=== PATIENT | female | born 1960 | race Caucasian/White ===

== ENCOUNTER → 2016-04-07 | Outpatient (CLI) | payer BC ==
[~2016-04-07] MED LIST: CLON0.5T3 PO; DULA1INJ SQ; ESCI10TA17 PO; GLIM4TAB2 PO; PRLSR20 PO
--- NOTE | 2016-04-08 13:34 | MAMMOGRAPHY REPORT ---
BILATERAL DIGITAL SCREENING MAMMOGRAM TOMOSYNTHESIS WITH CAD: 04/07/2016 CLINICAL HISTORY: Routine screening examination. TECHNIQUE: Breast tomosynthesis in addition to standard 2D mammography was performed. Current study was also evaluated with a Computer Aided Detection (CAD) system. COMPARISON: Comparison is made to exams dated: 02/27/2010 mammogram - [facility] a nd 03/02/2007. BREAST COMPOSITION: The tissue of both breasts is almost entirely fatty. FINDINGS: There is evidence of prior reduction mammoplasty. There is stable nodularity in the 12:0 0 right breast. Benign rim calcifications scattered bilaterally. No new suspicious mass, application systems architect ural distortion or cluster of microcalcifications is seen. IMPRESSION: ACR BI-RADS CATEGORY 1: NEGATIVE There is no mammographic evidence of malignancy. A 1 year screening mammogram is recommended. The p atient will receive written notification of the results. Approximately 10% of breast cancers are not detected with mammography. A negative mammographic repor t should not delay biopsy if a clinically suggestive mass is present. Mary Lou eYager M.D. ay/:04/07/2016 21:37:02 Flute Polisher: Loretta OLMSTEAD(Douglas)(Jo), [facility] letter sent: Normal 1/2 BI-RADS Code: ACR BI-RADS Category 1: Negative
== END | disposition home or self-care (01) ==
LOC: C.MAMM 15:35
PROVIDERS: ATTEND Physician Assistant
DX: Z12.31 Encounter for screening mammogram for malignant neoplasm of breast (principal)

== ENCOUNTER → 2017-03-03 | Outpatient (CLI) | payer BC ==
[~2017-03-03] MED LIST changes: +DOCU-94 PO; +ONDA8TAB62 SL; +PROC1TAB5 PO; +PROM25SU28 PR
[2017-03-03 14:53] VITALS: BP 98/65; PULSE 68; TEMP 36.3; O2SAT 99
--- NOTE | 2017-03-03 16:11 | Radiation Oncology Follow-Up ---
Radiation Oncology Follow-Up Date of Visit Mar 03, 2017. 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 Radiation was completed 01/25/2017. She received 5040 cGy. Last Edited By: Lisa Alarcon on Feb 01, 2017 17:31 History of Present Illness Ms. Torres over the past several months increasing difficulty swallowing. She had issues with eating rice and when she tried to take water to help the rice go down she was unable to pass the food. She has lost approximately 8 pounds during this episode but presently is able to swallow most things without difficulty. The patient underwent an endoscopy by Dr. Cole on 11/02/2016. This revealed a large, fungating and ulcerating mass with bleeding found in the middle third of the esophagus and in the lower third of the esophagus. The tumor extended from 30-36 cm from the incisors. The mass was partially obstructing and partially circumferential (involving one half of the luminal circumference). Biopsies were taken with cold forceps for histology verification. There was no extension into the stomach and no involvement of the duodenum. Later that evening patient underwent CT scans of the chest abdomen and pelvis. This revealed wall thickening of the distal esophagus with enlarged lymph node in the gastrohepatic ligament ensuring 1.5 cm.. The biopsy of the distal esophagus revealed an invasive adenocarcinoma accession #: [id number]. The patient underwent a staging upper endoscopy by Dr. Richardson on 11/06/2016. This confirmed a hypoechoic mass found in the lower third of the esophagus. The mass was encountered at 30 cm level from the incisors and extending to 37 cm level. The lesion was partially circumferential involving 50% of the lumen. The sonographic borders were poorly defined. The mass measured up to 1.2 cm in thickness. There was sonographic evidence suggesting invasion into the muscularis propria. An intact interface was seen between the mass and the adjacent structures suggesting a lack of invasion. For malignant appearing lymph nodes were visualized in the peritumoral region and one in the subcarinal mediastinum (level VII). The largest measured 1.3 cm in maximal cross sectional diameter. One malignant lymph node was visualized in the gastrohepatic ligament rapid disease level XVIII) it measured 1.7 x 1.5 cm and a fine-needle aspiration for cytology was taken. There were no signs of abnormalities in the left lobe of the liver and no involvement of the celiac trunk. The tumor was into but not through the fourth layer (muscularis propria ) with small peritumoral lymph nodes and subcarinal lymph nodes. The abdominal lymph node appears to be at the gastrohepatic ligament and not following the course of either the splenic artery of the left gastric artery and was not involving the celiac trunk. The lesion was staged by ultrasound as a uT3 uN2 Mx. 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 Accession #: [id number]. Patient was subsequently seen by Dr. Damaso Pedroza for evaluation and discussion of treatment options. He recommended a PET/CT scan to complete the staging workup. He discussed combination chemoradiation. He discussed weekly Paclitaxel and Carboplatin along with daily radiation and a preoperative intent. He arranged for the patient to be seen by Dr. Sevilla in [place] on December 02. The PET/CT scan was performed on 11/17/2016. This revealed bilateral hilar uptake right greater than left, subcarinal, AP window, right peritracheal markedly hypermetabolic adenopathy. The most intense nodular focus was in the right central hilar with an SUV max of 7.58. There was intense FDG activity and an SUV max of 20.61 in the significantly thickened distal esophagus. This measured 2.7 x 3.0 x 5 cm in the distal esophagus. There was mildly hypermetabolic gastrohepatic ligament lymph node with an SUV max of 3.6 to measuring 1.7 x 1.6 cm. There were multiple periportal lymph nodes demonstrating hypermetabolic change with a insurance service representative node measuring 1.5 x 2.6 cm and an FDG with SUV max of 4.49. There were no abnormalities in the pelvis. There were multiple foci of nodular uptake in the skin and subcutaneous regions of the breast tissue bilaterally without underlying nodular foci. Most intense is seen in the left breast with an SUV max of 4.[address] scan component that there was thoracic adenopathy as noted above and distal esophageal thickening/mass. Mild interstitial lung disease was suggested with posterior atelectasis. Diffuse fatty metamorphosis of the liver and small bilateral cortical renal cysts. We were asked to see the patient for consideration of preoperative chemoradiation. She completed combined neoadjuvant radiation and chemotherapy 01/25/2017. She received 5040 cGy Interim History Over the past month she has had difficulty with nutrition. She has excess phlegm that occurs in the throat. She will try to swallow food it only goes down so far and then comes back up. She was hospitalized for 2 days approximately 2 weeks ago [place]. She was given in the emergency room [place] yesterday. She was hydrated. She was given potassium. She has tried different products but has difficulty with ensure and boost because of the thickness of the fluid and increased phlegm after using these products. She denies pain. There is no pain with swallowing. There has been discussion of possible feeding tube. This was felt to be a concern due to the upcoming planned surgery. This may cause difficulty with the pull through of the stomach. Allergies Coded Allergies: No Known Allergies (Unverified , 11/18/16) Home Medications Scheduled Dulaglutide (Trulicity), 0.75 MG SQ WK Escitalopram (Lexapro), 10 MG PO DAILY Glimepiride (Glimepiride), 2 TAB PO DAILY Omeprazole (Prilosec), 20 MG PO DAILY Scheduled PRN Clonazepam (Klonopin), 0.5 MG PO DAILY PRN for Anxiety Ondansetron Odt (Zofran Odt), 8 MG SL Q6H PRN for Nausea Prochlorperazine Maleate (Compazine), 1 TAB PO Q6 PRN for Nausea Promethazine Hcl (Phenergan Suppository), 25 MG WI Q6H PRN for Nausea Review of Systems Gastrointestinal: Symptoms: Nausea GI Comments: Uses antiemetics without relief;2-4 emesis/day; Oral: Symptoms: Saliva amt. Increased, Thick/Viscid/Mucid Saliva Other Oral Symptoms: Not using aloe vera juice, manuka honey, or MBXC Respiratory: Symptoms: WNL Urinary: Symptoms: WNL Skin: Symptoms: No Problems Physical Exam Vital Signs Date Time Temp Pulse Resp B/P (MAP) Pulse Ox O2 Delivery O2 Flow Rate FiO2 03/03/17 14:53 36.3 68 12 98/65 99 Fatigue: Moderate General Appearance: no apparent distress Eyes: normal inspection, EOMI ENT: normal ENT inspection, hearing grossly normal Neck: no adenopathy, thyroid normal Respiratory/Chest: lungs clear, no respiratory distress, no accessory muscle use Cardiovascular: regular rate, rhythm, no gallop, no murmur Abdomen: soft, + tenderness Extremities: no pedal edema Neurologic/Psychiatric: no motor/sensory deficits, alert, normal mood/affect Skin: warm/dry Pain Management Patient Reports Pain: Yes Pain Location: Discomfort betw'n breasts Patient Preferred Pain Scale: 0 - 10 Initial Pain Intensity: 2.5 Pain Management Plan This occurs after she has tried to take in food. This can result in vomiting. We discussed intake of liquid nutrition and using MBXC to relieve discomfort at the distal esophagus. Laboratory Laboratory Results: and pertinent findings noted below Laboratory Comments: She reviewed with me that in the emergency room laboratory studies show dehydration and hypokalemia. She received hydration and potassium. Imaging Imaging Studies: were reviewed, and pertinent findings noted below Imaging Comments Date/Time of Imaging Study Study Completed: 02/17/2017 10:50 AM [facility] PACS Image Narrative EXAM PET CT SKULL BASE TO MID THIGH FDG - 02/17/2017 10:50 am HISTORY post-neoadjuvant treatment for esophageal adenocarcinoma. Subsequent treatment strategy. COMPARISON PET CT SKULL BASE TO MID THIGH dated 11/17/2016; CT ABDOMEN /PELVIS WITHOUT IV CONTRAST WITHOUT ORAL dated 02/02/2017; CT THORAX WITH CONTRAST dated 11/02/2016; CT ABDOMEN WITH IV CONTRAST - W/ PO dated 10/30/2009; MRI ABDOMEN WITH/WITHOUT CONTRAST dated 11/14/2009 TECHNIQUE Following the intravenous injection of approximately 15.7 millicuries of F18- FDG via the left antecubital fossa, PET imaging was performed with CT attenuation from the skull base through the mid thigh. Imaging was performed 63 minutes after injection of the radiopharmaceutical. The patient's glucose level at the time of the injection was 152 mg/dl. This is a follow-up PET/CT for the above indication. FINDINGS PET SCAN: HEAD/NECK: Physiologic uptake in the salivary glands and pharyngeal mucosa. No abnormal uptake. CHEST: Interval improvement in metabolic activity and thickening of the distal esophagus at site of patient's known neoplasm (SUV max of 5.8, previously 20.6). Residual uptake in the mid and distal esophagus may represent a combination of neoplasm and esophagitis. Complete resolution of mediastinal and bilateral hilar metabolically active lymphadenopathy. ABDOMEN/PELVIS: Gastrohepatic lymph node continues to decrease in size currently measuring 0.9 x 0.8 cm (previously 1.3 x 1.0 cm) without significant metabolic activity. MUSCULOSKELETAL/OTHER: No abnormal uptake. CT SCAN (other findings): HEAD/NECK: No acute process. CHEST: Trace left pleural effusion. No significant adenopathy identified. Bibasilar dependent atelectasis. ABDOMEN/PELVIS: No acute process. Focal fatty infiltration along the falciform ligament. Status post cholecystectomy. Small hiatal hernia. Again demonstrated are subcentimeter simple and hemorrhagic cysts in the right mid to lower pole kidney. Bilateral extrarenal pelves and/or renal sinus cysts. Mild colonic diverticulosis. Normal appendix. Trace free fluid in the posterior cul-de-sac. MUSCULOSKELETAL / OTHER: Polyarticular degenerative changes are present. Few small sclerotic lesions in the pelvis, possibly bone islands. IMPRESSION 1. Favorable treatment response with improving metabolic activity in the distal esophagus and resolution of mediastinal/bilateral hilar activity in metabolic activity within upper abdominal lymph nodes. Gastrohepatic lymph node continues to decrease in size. 2. Trace left effusion. 3. Trace free fluid in the posterior cul-de-sac. I have personally reviewed this examination and agree with the resident/fellow physician's interpretation. Assessment & Plan Plan: We reviewed her PET CT which has shown a good response to treatment. We' ve reviewed nutritional supplements that may be helpful for her. She is going to try boost breeze. We also discussed using Gatorade and ice based smoothies without milk. We also discussed intake of pured foods. She will use the MBXC prior to eating to help prevent discomfort in the epigastric area. She is scheduled for her esophagectomy 03/24/2017 in [place]. We asked her to return to our office in 6 months. She may call if she has any questions or concerns in the interim. Her final pathology will be reviewed in electronic medical record. Today we completed a cancer survivorship care plan. a copy of the document was given to the patient as well as a survivorship booklet. Total Time In Follow-Up I spent 20 minutes speaking to the patient and performing examination. I spent 20 minutes reviewing information, preparing the survivorship document, and completing this note. Copy To Pelon Sevilla M.D.; Terry Reveles M.D.; Blade Mejía PA-C; Damaso Pedroza M.D. Problem Qualifiers (1) Esophageal cancer: Malignant neoplasm of esophagus location: overlapping locations Qualified Codes: C15.8 - Malignant neoplasm of overlapping sites of esophagus
== END | disposition home or self-care (01) ==
LOC: C.ONC 14:01
PROVIDERS: ATTEND Physician Assistant Medical
DX: Z08 Encounter for follow-up examination after completed treatment for malignant neoplasm (principal); Z92.3 Personal history of irradiation; Z85.01 Personal history of malignant neoplasm of esophagus

== ENCOUNTER 2017-03-07 16:36 | Emergency (ER) | payer BC ==
[~2017-03-07] VITALS: Ht 157.5 cm; Wt 69.2 kg
[~2017-03-07 16:36] MED LIST changes: -DOCU-94 PO
[2017-03-07 16:40] VITALS: TEMP 36.4; Ht 157.5 cm; Wt 69.2 kg
[2017-03-07] MEDS ORDERED: ONDANSETRON INJ 2 MG/ML 2 ML VIAL IV STA (16:50)
[2017-03-07] MEDS ORDERED: SODIUM CHLORIDE 0.9% 1000ML 1,000 ML IV STA ×2 (16:50→19:34)
[2017-03-07] MEDS ORDERED: FAMOTIDINE 20MG/5ML IV PUSH IV STA (16:50)
--- NOTE | 2017-03-07 16:57 | EMERGENCY ROOM VISIT NOTE ---
History Report prepared by Diamond: Raul Royal Under the Supervision of: Dr. Manjeet Fraga D.O. First contact with patient: 16:45 Chief Complaint: VOMITING Stated Complaint: VOMITING, DIZZY, SOB Nursing Triage Summary: Pt has Esophageal CA. Reports she is done with chemo. Nausea/vomiting, dizziness for 1 month. Pt was at [facility] [facility] for same thing and was told she was dehydrated. Epigastric pain. History of Present Illness The patient is a 56 year old female who presents to the Emergency Room with complaints of intermittent vomiting beginning a month ago. The patient states she has a history of esophageal cancer that has spread to her lymph nodes. She reports she mostly vomits saliva and phlegm. The patient notes she was evaluated by her oncologist and ER doctors before, and they tell her it is a side effect from her cancer. She states she is also experiencing dizziness, abdominal pain, and dehydration. The patient reports she developed a headache earlier today. She notes she is typically given saline, Zofran, magnesium, and potassium. The patient states her last chemotherapy treatment was in January. She reports she had a PET scan 3 weeks ago. The patient notes she has abdominal surgery scheduled in two weeks. She states she has a history of diabetes, and her sugars are controlled. She denies a fever, history of bowel obstruction, blood in her stool, black stool, tobacco use, and alcohol use. Source of History: patient Onset: a month ago Position: other (global) Quality: other (vomiting phlegm and saliva) Timing: intermittent Associated Symptoms: + headache, + abdominal pain, No fevers Note: Associated symptoms: dizziness, dehydration Denies: blood in her stool, black stool Review of Systems See HPI for pertinent positives & negatives. A total of 10 systems reviewed and were otherwise negative. Family History Patient reports no known family medical history. Social History Smoking Status: Former Smoker Alcohol Use: none Marital Status: single Occupation Status: employed Current/Historical Medications Scheduled Dulaglutide (Trulicity), 0.75 MG SQ WK Omeprazole (Prilosec), 20 MG PO DAILY Scheduled PRN Clonazepam (Klonopin), 0.5 MG PO DAILY PRN for Anxiety Ondansetron Odt (Zofran Odt), 8 MG SL Q6H PRN for Nausea Prochlorperazine Maleate (Compazine), 1 TAB PO Q6 PRN for Nausea Promethazine Hcl (Phenergan Suppository), 25 MG LA Q6H PRN for Nausea Allergies Coded Allergies: No Known Allergies (Unverified , 11/18/16) Physical Exam Vital Signs Date Time Temp Pulse Resp B/P (MAP) Pulse Ox O2 Delivery O2 Flow Rate FiO2 03/07/17 21:22 55 16 112/61 100 03/07/17 21:21 55 16 112/61 100 Room Air 03/07/17 20:23 60 16 118/69 98 Room Air 03/07/17 18:14 56 16 107/60 100 Room Air 03/07/17 17:15 62 03/07/17 16:40 36.4 98 18 103/70 99 Room Air Physical Exam GENERAL: Patient is awake, alert, and in no acute distress. Patient is resting comfortably and showing no signs of anxiety EYES: The conjunctivae are clear. The pupils are round and reactive. EARS, NOSE, MOUTH AND THROAT: The nose is without any evidence of any deformity. Mucous membranes are moist tongue is midline NECK: The neck is nontender and supple. RESPIRATORY: Normal respiratory effort is noted there is no evidence of wheezing rhonchi or rales CARDIOVASCULAR: Regular rate and rhythm noted there no murmurs rubs or gallops normal S1 normal S2 GASTROINTESTINAL: The abdomen is soft. Bowel sounds are present in all quadrants. Abdomen is nontender BACK: No midline tenderness or or step-off noted range of motion in flexion extension as well as rotation no signs of muscle spasm noted MUSCULOSKELETAL/EXTREMITIES: There is no evidence of gross deformity full range of motion is noted in the hips and shoulders SKIN: There is no obvious evidence of any rash. There are no petechiae, pallor or cyanosis noted. NEUROLOGIC: Patient is awake alert and oriented x3 strength is symmetric patellar reflexes are 2+ bilaterally Medical Decision & Procedures ER Provider Diagnostic Interpretation: X-ray results as stated below per interpretation by me and the radiologist. ABDOMEN 2VIEW W/PA CHEST RTN HISTORY: 56 years-old Female ABDOMINAL PAIN/GI acute generalized abdominal pain with vomiting COMPARISON: PET CT 11/17/2016, CT chest 11/02/2016 TECHNIQUE: PA view of the chest with erect and supine views of the abdomen FINDINGS: Cardiomediastinal and hilar silhouettes are within normal limits. There is no pneumothorax, pleural effusion, focal airspace consolidation or overt pulmonary edema. The bones of the chest appear grossly intact. Cholecystectomy clips noted. No pneumoperitoneum on the upright projection. There are a few air-fluid levels noted within bowel of the right mid and lower abdomen. Bowel gas pattern is nonobstructive. No urolith or organomegaly. IMPRESSION: 1. Nonobstructive bowel gas pattern without pneumoperitoneum. 2. A few scattered bowel air-fluid levels of the right mid and lower abdomen suggesting enteritis or ileus. 3. No acute cardiopulmonary process. 4. Prior cholecystectomy. The above report was generated using voice recognition software. It may contain grammatical, syntax or spelling errors. Electronically signed by: Jose Miguel Bright M.D. 03/07/2017 6:04 PM Dictated Date/Time: 03/07/2017 6:00 PM Laboratory Results 03/07/17 17:10 Red Blood Count 3.66, Mean Corpuscular Volume 91.5, Mean Corpuscular Hemoglobin 32.2, Mean Corpuscular Hemoglobin Concent 35.2, Mean Platelet Volume 10.6, Neutrophils (%) (Auto) 63.2, Lymphocytes (%) (Auto) 18.1, Monocytes (%) (Auto) 16.5, Eosinophils (%) (Auto) 1.1, Basophils (%) (Auto) 0.8, Neutrophils # (Auto ) 2.30, Lymphocytes # (Auto) 0.66, Monocytes # (Auto) 0.60, Eosinophils # (Auto ) 0.04, Basophils # (Auto) 0.03 03/07/17 17:10 Test 03/07/17 17:10 03/07/17 17:25 White Blood Count 3.64 K/uL (4.8-10.8) Red Blood Count 3.66 M/uL (4.2-5.4) Hemoglobin 11.8 g/dL (12.0-16.0) Hematocrit 33.5 % (37-47) Mean Corpuscular Volume 91.5 fL (80-100) Mean Corpuscular Hemoglobin 32.2 pg (25-34) Mean Corpuscular Hemoglobin Concent 35.2 g/dl (32-36) Platelet Count 124 K/uL (130-400) Mean Platelet Volume 10.6 fL (7.4-10.4) Neutrophils (%) (Auto) 63.2 % Lymphocytes (%) (Auto) 18.1 % Monocytes (%) (Auto) 16.5 % Eosinophils (%) (Auto) 1.1 % Basophils (%) (Auto) 0.8 % Neutrophils # (Auto) 2.30 K/uL (1.4-6.5) Lymphocytes # (Auto) 0.66 K/uL (1.2-3.4) Monocytes # (Auto) 0.60 K/uL (0.11-0.59) Eosinophils # (Auto) 0.04 K/uL (0-0.5) Basophils # (Auto) 0.03 K/uL (0-0.2) RDW Standard Deviation 64.6 fL (36.4-46.3) RDW Coefficient of Variation 19.5 % (11.5-14.5) Immature Granulocyte % (Auto) 0.3 % Immature Granulocyte # (Auto) 0.01 K/uL (0.00-0.02) Anion Gap 14.0 mmol/L (3-11) Est Creatinine Clear Calc Drug Dose 128.6 ml/min Estimated GFR () 129.9 Estimated GFR (Non- 112.1 BUN/Creatinine Ratio 10.6 (10-20) Calcium Level 9.0 mg/dl (8.5-10.1) Magnesium Level 1.9 mg/dl (1.8-2.4) Total Bilirubin 0.7 mg/dl (0.2-1) Direct Bilirubin 0.2 mg/dl (0-0.2) Aspartate Amino Transf (AST/SGOT) 12 U/L (15-37) Alanine Aminotransferase (ALT/SGPT) 22 U/L (12-78) Alkaline Phosphatase 78 U/L (45-117) Total Protein 6.6 gm/dl (6.4-8.2) Albumin 3.4 gm/dl (3.4-5.0) Lipase 236 U/L (73-393) Urine Color DK YELLOW Urine Appearance CLEAR (CLEAR) Urine pH 6.0 (4.5-7.5) Urine Specific [place] 1.025 (1.000-1.030) Urine Protein 1+ (NEG) Urine Glucose (UA) NEG (NEG) Urine Ketones 4+ (NEG) Urine Occult Blood NEG (NEG) Urine Nitrite NEG (NEG) Urine Bilirubin NEG (NEG) Urine Urobilinogen NEG (NEG) Urine Leukocyte Esterase TRACE (NEG) Urine WBC (Auto) 1-5 /hpf (0-5) Urine RBC (Auto) 0-4 /hpf (0-4) Urine Hyaline Casts (Auto) 10-30 /lpf (0-5) Urine Epithelial Cells (Auto) >30 /lpf (0-5) Urine Bacteria (Auto) NEG (NEG) Laboratory results per my review. Medications Administered Medications (Trade) Dose Ordered Sig/Sari Route Start Time Stop Time Status Last Admin Dose Admin Sodium Chloride 1,000 ml @ 999 mls/hr Q1H1M STAT IV 03/07/17 16:50 03/07/17 17:50 DC 03/07/17 17:17 999 MLS/HR Ondansetron HCl (Zofran Inj) 4 mg NOW STAT IV 03/07/17 16:50 03/07/17 16:52 DC 03/07/17 17:17 4 MG Famotidine (Pepcid 20mg Iv Push) 20 mg ONE STAT IV 03/07/17 16:50 03/07/17 16:52 DC 03/07/17 17:17 20 MG Morphine Sulfate (MoRPHine SULFATE INJ) 4 mg Q15M PRN IV 03/07/17 17:00 03/07/17 21:54 DC 03/07/17 20:05 4 MG Potassium Chloride (Kcl 10 Meq / Wtr) 10 meq NOW STAT IV 03/07/17 19:34 03/07/17 19:36 DC 03/07/17 20:06 10 MEQ Sodium Chloride 1,000 ml @ 999 mls/hr Q1H1M STAT IV 03/07/17 19:34 03/07/17 20:34 DC 03/07/17 20:06 999 MLS/HR ED Course 164: The patient was evaluated in room A04B. A complete history and physical examination were performed. 0: Ordered Famotidine 20mg IV, Ondansetron HCl 4mg IV, NSS 1,000 ml @ 999 mls /hr IV 1700: Ordered Morphine Sulfate 4mg IV 1931: I reevaluated the patient and discussed her current exam findings. The patient will receive potassium before discharge. 1933: Ordered NSS 1,000 ml @ 999 mls/hr IV, Potassium Chloride 10 meq IV 7: Upon reevaluation, the patient is resting comfortably. I discussed the results and treatment plan with her. She verbalized agreement of the treatment plan. The patient was discharged home. Medical Decision Differential diagnosis: Etiologies such as gastroenteritis, food borne illness, infections, appendicitis , diverticulitis, inflammatory bowel disease, obstruction, GI bleed, biliary pathology, as well as others were entertained. Nursing notes reviewed. The patient is a 56-year-old female who presented to the emergency department for an evaluation done vomiting. The patient has a history of nausea and vomiting ever since she develop esophageal cancer. She's had similar symptoms in the past. She tried taking her outpatient antiemetics but continued to have symptoms. The patient was treated with IV fluids and IV antiemetics. She was reevaluated multiple times. She was found have hypokalemia and was treated with IV potassium replacement. She cannot tolerate potassium replacement by mouth. I discussed the patient's laboratory radiographic studies with her. Her physical exam was not consistent with an acute surgical abdomen. She was encouraged to rest and avoid any strenuous activity. She was also encouraged to call her family doctor morning to schedule a follow-up appointment and continue all medications as prescribed. She was also encouraged to return the emergency Department immediately if symptoms change worsen or the need arises. Impression Primary Impression: Dehydration Additional Impressions: Hypokalemia Nausea & vomiting Scribe Attestation The scribe's documentation has been prepared under my direction and personally reviewed by me in its entirety. I confirm that the note above accurately reflects all work, treatment, procedures, and medical decision making performed by me. Departure Information Dispostion Home / Self-Care Referrals Blade Mejía PA-C (PCP) Forms HOME CARE DOCUMENTATION FORM, IMPORTANT VISIT INFORMATION Patient Instructions ED Nausea Vomiting, My [facility] Additional Instructions Continue all medications as prescribed. Drink plenty clear liquids. Call your primary oncologist as well as her primary care physician in the morning to schedule follow-up appointment. Problem Qualifiers Additional Impressions: Nausea & vomiting Vomiting type: unspecified Vomiting Intractability: non-intractable Qualified Codes: R11.2 - Nausea with vomiting, unspecified
[2017-03-07] MEDS: MoRPHine SULFATE 4 MG/ML 1 ML CARP\\VIAL IV PRN ×2 (17:17→20:05)
[2017-03-07 17:24] LABS: BASO % 0.8 %; BASO ABS # 0.03 K/uL (0-0.2); EOS % 1.1 %; EOS ABS # 0.04 K/uL (0-0.5); HEMATOCRIT 33.5 % (37-47); HEMOGLOBIN 11.8 g/dL (12.0-16.0); IG# 0.01 K/uL (0.00-0.02); LYMPH % 18.1 %; LYMPH ABS # 0.66 K/uL (1.2-3.4); MEAN CELL VOLUME 91.5 fL (80-100); MEAN CORPUSCULAR HEMOGLOBIN 32.2 pg (25-34); MEAN CORPUSCULAR HGB CONC 35.2 g/dl (32-36); MEAN PLATELET VOLUME 10.6 fL (7.4-10.4); MONO % 16.5 %; NEUT % 63.2 %; PLATELET COUNT 124 K/uL (130-400); RED CELL DISTRIBUTION WIDTH CV 19.5 % (11.5-14.5); RED CELL DISTRIBUTION WIDTH SD 64.6 fL (36.4-46.3); WHITE BLOOD COUNT 3.64 K/uL (4.8-10.8)
[2017-03-07 17:41] LABS: CREATININE 0.44 mg/dl (0.60-1.20)
[2017-03-07 17:42] LABS: ALBUMIN 3.4 gm/dl (3.4-5.0); POTASSIUM 2.8 mmol/L (3.5-5.1)
[2017-03-07 17:44] LABS: TOTAL PROTEIN 6.6 gm/dl (6.4-8.2)
--- NOTE | 2017-03-07 18:05 | DIAGNOSTIC IMAGING REPORT ---
ABDOMEN 2VIEW W/PA CHEST RTN HISTORY: 56 years-old Female ABDOMINAL PAIN/GI acute generalized abdominal pain with vomiting COMPARISON: PET CT 11/17/2016, CT chest 11/02/2016 TECHNIQUE: PA view of the chest with erect and supine views of the abdomen FINDINGS: Cardiomediastinal and hilar silhouettes are within normal limits. There is no pneumothorax, pleural effusion, focal airspace consolidation or overt pulmonary edema. The bones of the chest appear grossly intact. Cholecystectomy clips noted. No pneumoperitoneum on the upright projection. There are a few air-fluid levels noted within bowel of the right mid and lower abdomen. Bowel gas pattern is nonobstructive. No urolith or organomegaly. IMPRESSION: 1. Nonobstructive bowel gas pattern without pneumoperitoneum. 2. A few scattered bowel air-fluid levels of the right mid and lower abdomen suggesting enteritis or ileus. 3. No acute cardiopulmonary process. 4. Prior cholecystectomy. The above report was generated using voice recognition software. It may contain grammatical, syntax or spelling errors. Electronically signed by: Jose Miguel Bright M.D. 03/07/2017 6:04 PM Dictated Date/Time: 03/07/2017 6:00 PM
[2017-03-07] MEDS ORDERED: POTASSIUM CHLORIDE 10 MEQ / 100ML WTR IV STA (19:34)
[2017-03-07 21:22] VITALS: BP 112/61; PULSE 55; O2SAT 100
== END 2017-03-07 21:23 | disposition home or self-care (01) ==
LOC: C.EDB 16:38 → C.EDA 21:23
DX: E86.0 Dehydration (principal); E87.6 Hypokalemia; R11.2 Nausea with vomiting, unspecified; C15.9 Malignant neoplasm of esophagus, unspecified